=== PATIENT | male | born 1945 | race Caucasian/White ===

== ENCOUNTER 2023-07-15 07:53 | Outpatient (CLI) | payer SELFPAY | END 2023-07-15 07:54 | disposition short-term general hospital (02) | LOC: EMS 07:53 | DX: E11.649 Type 2 diabetes mellitus with hypoglycemia without coma (principal); J18.9 Pneumonia, unspecified organism; Z79.4 Long term (current) use of insulin | CPT/HCPCS: A0425; A0427 ==